=== PATIENT | female | born 1995 | race Caucasian/White ===

== ENCOUNTER 2021-08-09 10:44 | Emergency (ER) | payer OTHER, SELFPAY ==
[2021-08-09 10:52] VITALS: BP 121/78; PULSE 86; RESP 14; TEMP 37.2; O2SAT 100
[2021-08-09 11:07] VITALS: BP 121/78; PULSE 86; RESP 14; TEMP 37.2; O2SAT 100
--- NOTE | 2021-08-09 11:13 | ED.URI ---
HPI - URI/Sore Throat General Chief Complaint: Upper Respiratory Infection Stated Complaint: Cough Time Seen by Provider: 08/09/21 11:10 Source: patient, RN notes reviewed and old records reviewed Mode of arrival: ambulatory Limitations: no limitations History of Present Illness HPI Narrative: 25-year-old female who presents to [facility] with complaints 7-day history of cough, painful swallowing, some body aches denies any fever or any shortness of breath has been taking DayQuil and NyQuil and also some salt water gargles. Cough has increased at night with not being able to rest, tonsils are swollen, facial pressure with some nasal drainage which is pale yellow, cough is dry. MD elicited complaint: cough and sore throat Related Data Home Medications Medication Instructions Recorded Confirmed norethindrone-e.estradiol-iron 1 tablet PO DAILY 08/09/21 08/09/21 [Aurovela Fe 1-20 (28)] Allergies Allergy/AdvReac Type Severity Reaction Status Date / Time Penicillins Allergy Intermediate HIVES Verified 08/09/21 11:06 amoxicillin Allergy Hives Verified 08/09/21 11:06 Review of Systems Review of Systems: CONSTITUTIONAL: Denies fever, chills, or sweats. EYES: Denies visual changes, redness, or discharge. ENT: positive rhinorrhea, congestion, sore throat, no otalgia. CARDIOVASCULAR: Denies chest pain, palpitations, or edema. RESPIRATORY: positive cough denies any dyspnea. GASTROINTESTINAL: Denies abdominal pain, nausea, vomiting, or diarrhea. GENITOURINARY: Denies dysuria or hematuria. SKIN: Denies rash or itching. MUSCULOSKELETAL: Denies back pain, joint pain,some body aches NEUROLOGIC: Denies headache, numbness, or weakness. PSYCHIATRIC: Denies anxiety or depression. All systems reviewed & are unremarkable except as noted in HPI and below PMFSH Past Medical History Medical History (Updated 08/09/21 @ 11:28 by Whitney Christie NP) Hyperthyroidism Graves' disease Social History Social History (Updated 08/09/21 @ 12:13 by Whitney Christie NP) Smoking status: Never smoker Alcohol intake: current Alcohol use details: social Substance use type: does not use Living arrangements: with family Gender identity (if verbalized by the patient): Female Comments At time of signature, agree with nursing past medical, surgical, social and family history. There is no relevant family history pertinent to the presenting complaint Exam Narrative: GENERAL: Well-appearing, well-nourished, and in no acute distress. HEAD: Normocephalic, atraumatic. EYES: PERRLA and EOMI. ENT: Nares red with yellow tinged rhinorrhea no epistaxis. Mucous membranes moist.TM's normal with dull light reflex, throat red with no lesions or exudates, tonsils are huge and red NECK: Supple. lymphadenopathy CHEST: Clear to auscultation. No respiratory distress, acute cough increased especially at night denies any wheezing. HEART: Regular rate and rhythm. No murmur heard. Normal peripheral pulses. ABDOMEN: Soft, nontender, nondistended, normal active bowel sounds. EXTREMITIES: Normal range of motion. No edema. SKIN: Warm, dry, no rash. NEURO: No focal deficits. Alert and oriented x3. Course Course Level of Care: Express Care Visit Vital Signs Vital signs: Vital Signs Temperature 37.2 C 08/09/21 10:52 Pulse Rate 86 08/09/21 10:52 Respiratory Rate 14 08/09/21 10:52 Blood Pressure 121/78 08/09/21 10:52 Pulse Oximetry 100 08/09/21 10:52 Temperature 37.2 C 08/09/21 11:07 Pulse Rate 86 08/09/21 11:07 Respiratory Rate 14 08/09/21 11:07 Blood Pressure 121/78 08/09/21 11:07 Pulse Oximetry 100 08/09/21 11:07 MDM - URI/Sore Throat Differential Diagnosis Differential diagnosis: Likely upper respiratory infection, sinusitis, pharyngitis and other (cough acute, strep pharyngitis) Medical Records Attestation: I reviewed the patient's medical records. Lab Data Attestation: I reviewed the patient's lab results.
== END 2021-08-09 11:40 | disposition home or self-care (01) ==
PROVIDERS: Emergency Provider Registered Nurse
DX: J32.9 Chronic sinusitis, unspecified (principal); R05.1 Acute cough; J02.9 Acute pharyngitis, unspecified; E05.00 Thyrotoxicosis with diffuse goiter without thyrotoxic crisis or storm
CPT/HCPCS: 87081; 87880; 99203; G0463